=== PATIENT | female | born 1950 | race Caucasian/White ===

== ENCOUNTER → 2016-04-11 | Outpatient (CLI) | payer MEDICARE ==
[~2016-04-11] VITALS: Ht 160 cm; Wt 119.7 kg
[~2016-04-11] MED LIST: ASPIRIN E.C. 8181 MG PO; CELEBREX 200MG200 MG PO; CRANBERRY 100 M1 SGL PO; FLONASEALLERGY NS; KLOR-CON M2020 MEQ PO; LASIX 40MG TABL40 MG PO; PRED FORTE 1 ML1 ML; PROAIR HFA0.09 MG/AC IH; PROPIONATE; RT ADVAIR 228 DISKUS IH; SYNTHROID 0.0.025 MG PO; ZESTRIL 20MG TA20 MG PO; ZOCOR 40MG40 MG PO; [UNRECOGNIZED DRUG - OTHER] PO; [UNRECOGNIZED DRUG - OTHER] PO; [UNRECOGNIZED DRUG - OTHER] PO
[2016-04-11 13:18] VITALS: BP 130/68; PULSE 73
[2016-04-11 14:47] VITALS: BP 130/68; PULSE 73
== END ==
LOC: LIGHT 11:12
DX: J45.998 Other asthma (principal); M15.8 Other polyosteoarthritis; F50.81 Binge eating disorder; E78.4 Other hyperlipidemia; E66.01 Morbid (severe) obesity due to excess calories; Z68.42 Body mass index [BMI] 45.0-49.9, adult

== ENCOUNTER 2016-04-13 11:19 | Inpatient (IN) | payer MEDICARE ==
[~2016-04-13] VITALS: Ht 160 cm; Wt 116.1 kg
[~2016-04-13 11:19] MED LIST changes: -FLONASEALLERGY NS
[2016-04-27] VITALS (12 sets, daily range): BP systolic 102–160; BP diastolic 63–85; PULSE 65–88; TEMP 97.3–98.8
[2016-04-27] MEDS ORDERED: FLONASEALLERGY NS (08:06)
[2016-04-28 02:00] VITALS: BP 150/63; PULSE 80; TEMP 98.4
[2016-04-28 05:10] VITALS: BP 137/63; PULSE 76; TEMP 98.5
[2016-04-28 09:29] VITALS: BP 136/64; PULSE 70; TEMP 98.8
[2016-04-28 13:19] VITALS: BP 141/66; PULSE 72; TEMP 97.9
== END 2016-04-28 18:43 | disposition home health service (06) | DRG 641 ==
LOC: INPTSU 04-27 06:54 → SURG 04-27 09:00
PROVIDERS: Surgery
PROC: 0DB64ZZ Excision of Stomach, Percutaneous Endoscopic Approach (ICD-10-PCS; principal; 2016-04-27 09:00)
DX: E66.01 Morbid (severe) obesity due to excess calories (principal); I10 Essential (primary) hypertension; J44.9 Chronic obstructive pulmonary disease, unspecified; E03.9 Hypothyroidism, unspecified; Z68.42 Body mass index [BMI] 45.0-49.9, adult
CPT/HCPCS: A9284; J0690; J1100; J1170; J1885; J2405; J2550; J2704; J3010; J7120

== ENCOUNTER → 2016-04-19 | Outpatient (CLI) | payer MEDICARE ==
[~2016-04-19] MED LIST changes: +FLONASEALLERGY NS
== END ==
LOC: LIGHT 09:30
DX: Z01.818 Encounter for other preprocedural examination (principal); J45.998 Other asthma; M15.8 Other polyosteoarthritis; F50.81 Binge eating disorder; E78.4 Other hyperlipidemia; E66.01 Morbid (severe) obesity due to excess calories; Z68.42 Body mass index [BMI] 45.0-49.9, adult

== ENCOUNTER → 2016-05-09 | Outpatient (CLI) | payer MEDICARE ==
[~2016-05-09] VITALS: Ht 160 cm; Wt 113.2 kg
[2016-05-09 13:58] VITALS: BP 136/53; PULSE 66
[2016-05-09 14:24] VITALS: BP 136/53; PULSE 66
== END ==
LOC: LIGHT 09:20
DX: Z98.84 Bariatric surgery status (principal); E78.4 Other hyperlipidemia; F50.81 Binge eating disorder

== ENCOUNTER → 2016-06-06 | Outpatient (CLI) | payer MEDICARE ==
[~2016-06-06] VITALS: Ht 160 cm; Wt 108.2 kg
[2016-06-06 14:19] VITALS: BP 116/65; PULSE 63
== END ==
LOC: LIGHT 13:20
DX: J45.998 Other asthma (principal); M15.8 Other polyosteoarthritis; F50.81 Binge eating disorder; E78.4 Other hyperlipidemia; Z68.41 Body mass index [BMI] 40.0-44.9, adult; Z98.84 Bariatric surgery status; Z90.49 Acquired absence of other specified parts of digestive tract

== ENCOUNTER → 2016-07-18 | Outpatient (CLI) | payer MEDICARE ==
[~2016-07-18] VITALS: Ht 160 cm; Wt 103.9 kg
[2016-07-18 13:53] VITALS: BP 109/50; PULSE 74
== END ==
LOC: LIGHT 13:50
DX: E66.9 Obesity, unspecified (principal); Z68.41 Body mass index [BMI] 40.0-44.9, adult

== ENCOUNTER → 2016-07-18 | Outpatient (CLI) | payer MEDICARE, OTHER | LOC: MC.RAD 15:00 | DX: Z12.31 Encounter for screening mammogram for malignant neoplasm of breast (principal) ==

== ENCOUNTER 2018-02-14 13:15 | Outpatient (RCR) | payer MEDICARE, OTHER ==
[~2018-02-14 13:15] MED LIST changes: +CLARITIN 1010 MG/TAB PO; -PROAIR HFA0.09 MG/AC IH; +RT ALBUTER2.5 MG/0.5 IH; -[UNRECOGNIZED DRUG - OTHER] PO
[2018-03-02] MEDS ORDERED: VOLTAREN GEL 1%1 TU TP (07:28)
[2018-03-02] MEDS ORDERED: LASIX 20MG TABL20 MG PO (07:31)
[2018-03-02] MEDS ORDERED: K-TAB20 PO (07:32)
[2018-03-03] MEDS ORDERED: BRILINTA90 MG PO (09:08)
[2018-03-03] MEDS ORDERED: TOPROL XL 25MG25 MG PO (09:08)
== END 2018-03-15 | disposition home or self-care (01) ==
LOC: MKS.ESL.PT
DX: I89.0 Lymphedema, not elsewhere classified (principal); E66.01 Morbid (severe) obesity due to excess calories; Z91.81 History of falling; Z98.84 Bariatric surgery status
CPT/HCPCS: G8990-GP; G8991-GP

== ENCOUNTER 2018-03-02 05:56 | Day surgery (SDC) | payer MEDICARE, OTHER ==
[~2018-03-02] VITALS: Ht 160 cm; Wt 109.1 kg
[2018-03-02] VITALS (95 sets, daily range): BP systolic 107–136; BP diastolic 67–95; PULSE 56–67; TEMP 97.2–98.1; O2SAT 95–100
[2018-03-02] MEDS ORDERED: VOLTAREN GEL 1%1 TU TP (07:28)
[2018-03-02] MEDS ORDERED: LASIX 20MG TABL20 MG PO (07:31)
[2018-03-02] MEDS ORDERED: K-TAB20 PO (07:32)
[2018-03-02 07:41] LABS: PROTHROMBIN TIME 11.6 SECONDS (9.7-12.8)
[2018-03-02 07:44] LABS: CREATININE, serum 0.81 mg/dL (0.52-1.25); HEMATOCRIT 41.7 % (37.0-47.0); HEMOGLOBIN 13.5 g/dl (12.5-16.0); MEAN CELL VOLUME 92 fl (80.0-100.0); MEAN CORPUSCULAR HEMOGLOBIN 30 pg (27.0-31.0); MEAN CORPUSCULAR HGB CONC 32 g/dl (33.0-37.0); MEAN PLATELET VOLUME 12.3 fl (7.4-10.4); PLATELET COUNT 188 K/mm3 (130-400); POTASSIUM 4.4 mmol/L (3.4-5.0); RED BLOOD COUNT 4.53 M/mm3 (4.10-5.30); REDCELL DISTRIBUTION WIDTH-CV 12.7 % (11.5-14.5)
[2018-03-03] VITALS (504 sets, daily range): BP systolic 107–116; BP diastolic 55–67; PULSE 52–59; TEMP 97.2–97.9; O2SAT 91–98
[2018-03-03 05:29] LABS: BASO # 0.1 (0.0-0.2); EOS # 0.3 (0.0-0.7); EOS % 2.8 % (0-4.0); GRAN # 4.8 (1.4-6.5); GRAN % 51.4 % (42.2-75.2); HEMATOCRIT 40.2 % (37.0-47.0); HEMOGLOBIN 13.4 g/dl (12.5-16.0); LYMPH # 3.5 (1.2-3.4); LYMPH % 37.5 % (20.0-51.0); MEAN CELL VOLUME 91 fl (80.0-100.0); MEAN CORPUSCULAR HEMOGLOBIN 30 pg (27.0-31.0); MEAN CORPUSCULAR HGB CONC 33 g/dl (33.0-37.0); MEAN PLATELET VOLUME 11.5 fl (7.4-10.4); MONO # 0.6 (0.1-0.6); MONO % 6.9 % (1.7-9.3); PLATELET COUNT 172 K/mm3 (130-400); RED BLOOD COUNT 4.42 M/mm3 (4.10-5.30); REDCELL DISTRIBUTION WIDTH-CV 12.5 % (11.5-14.5)
[2018-03-03 05:40] LABS: CALCIUM 8.9 mg/dL (8.4-10.2); CREATININE, serum 0.82 mg/dL (0.52-1.25); POTASSIUM 4.2 mmol/L (3.4-5.0)
[2018-03-03] MEDS ORDERED: BRILINTA90 MG PO (09:08)
[2018-03-03] MEDS ORDERED: TOPROL XL 25MG25 MG PO (09:08)
== END 2018-03-03 11:05 | disposition home or self-care (01) ==
LOC: COL.CAR 05:56 → ICU 09:27 → COL.CAR 03-03 11:05 → ICU 03-03 11:05
PROVIDERS: Internal Medicine Cardiovascular Disease; Nurse Practitioner
DX: I25.110 Atherosclerotic heart disease of native coronary artery with unstable angina pectoris (principal); I89.0 Lymphedema, not elsewhere classified; J44.9 Chronic obstructive pulmonary disease, unspecified; I10 Essential (primary) hypertension; E66.9 Obesity, unspecified; Z91.19 Patient's noncompliance with other medical treatment and regimen; E03.9 Hypothyroidism, unspecified; R00.2 Palpitations; E78.5 Hyperlipidemia, unspecified; M19.90 Unspecified osteoarthritis, unspecified site; I87.2 Venous insufficiency (chronic) (peripheral)
CPT/HCPCS: OP; C9600; J0583; J1644; J2250; J3010; Q9967

== ENCOUNTER 2018-03-21 14:37 | Outpatient (RCR) | payer MEDICARE ==
[~2018-03-21 14:37] MED LIST changes: +BRILINTA90 MG PO; +K-TAB20 PO; +LASIX 20MG TABL20 MG PO; +TOPROL XL 25MG25 MG PO; +VOLTAREN GEL 1%1 TU TP
== END 2018-06-19 | disposition home or self-care (01) ==
LOC: MKS.ESL.PT
DX: I89.0 Lymphedema, not elsewhere classified (principal)

== ENCOUNTER → 2018-08-01 | Outpatient (CLI) | payer MEDICARE | LOC: MC.RAD 07-24 11:30 | DX: Z12.31 Encounter for screening mammogram for malignant neoplasm of breast (principal) ==

== ENCOUNTER 2023-03-24 18:19 | Observation (INO) | payer MEDICARE ==
[2023-03-24] VITALS (7 sets, daily range): BP systolic 115–139; BP diastolic 57–104; PULSE 16–83; TEMP 77–99.2
[~2023-03-24] VITALS: Ht 7.6 cm; Wt 108.8 kg
--- NOTE | 2023-03-24 19:18 | NUR ---
PT ADMITTED PER EMS FROM [facility]. PT HAD BEEN NPO- SMALL SWALLOWS OF H20 A FEW HRS AGO NO FOOD SINCE YESTERDAY. O2 2L NC. PATRICES REORTED SAT 80'S. PAIN UNDER CONTROAL. DR BOSWELL HERE. REVIEWED PLAN FOR SURGERY. IV TO RT AC. PAINFFUL SITE. IV FLUSHES WELL CALL HS TO RESTART.
[2023-03-24] MEDS ORDERED: HYDROmorphone 0.5 MG/0.5 ML SYRINGE IV PRN (20:00)
[2023-03-24] MEDS ORDERED: LR 1,000 ML IV SCH (20:00)
[2023-03-24] MEDS ORDERED: Ondansetron 4 MG/2 ML VIAL IV PRN ×2 (20:00→20:30)
[2023-03-24] MEDS ORDERED: Ondansetron 4 MG/2 ML VIAL ONE (20:04)
[2023-03-24] MEDS ORDERED: Lidocaine PF 2% (20 MG/ML) 5 ML VIAL ONE (20:04)
[2023-03-24] MEDS ORDERED: fentaNYL 50 MCG/ML 2 ML VIAL ONE (20:04)
[2023-03-24] MEDS ORDERED: Rocuronium 50 MG/5 ML Multi-Dose VIAL ONE (20:04)
[2023-03-24] MEDS ORDERED: PREDFORTE10ML OD (20:22)
[2023-03-24] MEDS ORDERED: CYMBALTA 60MG60 MG PO (20:24)
[2023-03-24] MEDS ORDERED: ALL DAY ALLERGY10 M3 PO (20:25)
[2023-03-24] MEDS ORDERED: fentaNYL 50 MCG/ML 2 ML VIAL IV PRN (20:30)
[2023-03-24] MEDS ORDERED: droPERidol 2.5 MG/ML 2 ML VIAL IV PRN (20:30)
[2023-03-24] MEDS ORDERED: Morphine 4 MG/ML VIAL IV PRN (20:30)
[2023-03-24] MEDS ORDERED: hydrALAZINE 20 MG/ML 1 ML VIAL IV PRN (20:30)
[2023-03-24] MEDS ORDERED: HYDROmorphone 2 MG/1 ML VIAL IV PRN (20:30)
--- NOTE | 2023-03-24 20:34 | NUR ---
PT TO OR PER BED. PT HAS SIGNED CSURGERY CONSENT. DENIES QUESTIONS.
[2023-03-24] MEDS ORDERED: Topical Skin Adhesive 1 EACH (1 ML) TOP ONE (21:11)
[2023-03-24] MEDS ORDERED: Atorvastatin 20 MG TAB PO SCH (22:00)
--- NOTE | 2023-03-24 22:00 | NUR ---
PT RETURNED POST OP LAP APPY FROM PACU. LR INFUSING PER GRAVITY TO RT AC. O2 WAS AT 4L. NOW AT 1L NC. VSS. AWAKE AND ORIENTED. DENIES PAIN OR NAUSEA. X3 LAP INCISIONS GLUED. NO DRAINAGE. WISAM. REVIEWED POST OP PLAN AND ORDERS. PT TOLERATING H20. PROVIDED POPSICKLE AND PUDDING. CALL LIGHT IN REACH. BED ALARM SET.
--- NOTE | 2023-03-24 23:25 | NUR ---
NORCO 5MG PO GIVEN FOR ABD PAIN. VVS. NO OTHER NEEDS. CONFIRMED PT IS NOT DIABETIC NOTED IN H&P
[2023-03-25] VITALS (10 sets, daily range): BP systolic 96–117; BP diastolic 52–80; PULSE 64–78; TEMP 98–99
--- NOTE | 2023-03-25 01:18 | NUR ---
PT SLEEPING. NO DISTRESS. VSS.
--- NOTE | 2023-03-25 03:44 | NUR ---
PC/O ABD PAIN. SEE MAR FOR NORCO GIVEN. ASSISTED UP T BR. VOIDED W/O DIFFICULTY.
[2023-03-25] MEDS ORDERED: Ascorbic Acid 500 MG TAB PO SCH (08:00)
[2023-03-25] MEDS ORDERED: Furosemide 40 MG TAB PO SCH (09:00)
[2023-03-25] MEDS ORDERED: Loratadine 10 MG TAB PO SCH ×2 (09:00)
[2023-03-25] MEDS ORDERED: Lisinopril 20 MG TAB PO SCH (09:00)
[2023-03-25] MEDS ORDERED: DULoxetine 60 MG CAP PO SCH (09:00)
[2023-03-25] MEDS ORDERED: PLAVIX 75MG TAB75 MG PO (09:54)
[2023-03-25] MEDS ORDERED: NORVASC 5MG5 MG/TAB PO (09:55)
[2023-03-25] MEDS ORDERED: COMPLETE MULTI1 TAB PO (09:56)
--- NOTE | 2023-03-25 10:45 | NUR ---
Patient resting in bed. Alert & oriented. has rounded and plan of care reviewed. SHe denies pain this am. Tolerating diet without nausea. Lap site x3, edges well approximated. Int. Planning on DC this afternoon when her sister can get her.
[2023-03-25] MEDS ORDERED: MOTRIN 600600 MG/TAB PO (12:16)
[2023-03-25] MEDS ORDERED: NORCO 325 MG-51 TAB PO (12:16)
[2023-03-25] MEDS ORDERED: AMOXICILLIN 8751 TAB PO (12:17)
--- NOTE | 2023-03-25 13:02 | NUR ---
Data: Patient declined offer of Food Mixer Repairer visit. Patient stated she was being discharged today and wanted to nap. However, Patient continued speaking to Food Mixer Repairer and then invited Food Mixer Repairer into the room for conversation only. Assessment: Patient is using the time in the hospital to review her life. Patient acknowledges the loss of her who from colon cancer approximately 22 years ago still has an impact on her. Plan of Care: Food Mixer Repairer provided compassionate listening.
--- NOTE | 2023-03-25 13:30 | NUR ---
Patient ready for discharge home. Her sister to take her. Patient pain elevated with activity. Minimal pain at rest. Poston for pain as ordered. Patient denies nausea, going to get lunch with her sister. Int DC. Patient dressed independently. Voiding without problems. Patient given all discharge education including importance of making a follow up appt on Monday. Doctor office number provided to call with questions and or concerns. Activity & diet reviewed. Incision cares discussed. Patient ready to discharge. SHe is wheeled out with all belongings, sister taking her home
[2023-03-25] MEDS ORDERED: Simvastatin 40 MG **** subs to Atorvastatin 20 MG PO SCH (21:00)
== END 2023-03-25 14:48 | disposition home or self-care (01) ==
LOC: JCC 18:19 → SURG 19:29
PROVIDERS: ADMIT Surgery
DX: K35.80 Unspecified acute appendicitis (principal); E66.01 Morbid (severe) obesity due to excess calories; I10 Essential (primary) hypertension; Z79.899 Other long term (current) drug therapy; Z79.891 Long term (current) use of opiate analgesic
CPT/HCPCS: G0378; G0379; J0690; J2405; J2543; J2704; J3010; J7120